=== PATIENT | female | born 1980 | race Caucasian/White ===

== ENCOUNTER 2024-08-07 17:53 | Inpatient (IN) | payer BC ==
[2024-08-07 20:13] LABS: BASOPHILS PERCENT AUTO 0.1 % (0.0-1.0); EOSINOPHILS PERCENT AUTO 0.6 % (1.0-3.0); HEMATOCRIT 40.6 % (37.0-47.0); HEMOGLOBIN 14.4 g/dL (12.0-16.0); LYMPHOCYTES PERCENT AUTO 23.4 % (20.5-50.1); MEAN CORPUSCULAR HEMOGLOBIN 30.1 pg (27.0-34.0); MEAN CORPUSCULAR HGB CONC 35.5 g/dL (33.0-35.0); MEAN CORPUSCULAR VOLUME 84.8 fL (80-100); MONOCYTES PERCENT AUTO 4.8 % (2-8); NEUTROPHILS PERCENT AUTO 71.1 % (42.2-75.2); PLATELET COUNT,PLT 279 10^3/uL (150-450); RED BLOOD CELL COUNT 4.79 10^6/uL (4.2-5.4); WHITE BLOOD CELL COUNT,WBC 15.3 10^3/uL (5.0-10.0)
[2024-08-07 20:37] LABS: ALBUMIN 3.2 g/dL (3.4-5.0); ANION GAP 13.4 mEq/L (7-13); BILIRUBIN TOTAL 0.9 mg/dL (0.2-1.0); BUN/CREATININE RATIO 11.8 (No establ ref range); CALCIUM 8.3 mg/dL (8.5-10.1); CREATININE 0.93 mg/dL (0.55-1.02); EST CRCL DRUG DOSING (CG) 68.01 mL/min; POTASSIUM,K 4.4 mmol/L (3.5-5.1); PROTEIN TOTAL,TP 7.2 g/dL (6.4-8.2)
[2024-08-07 20:44] LABS: A/G RATIO 0.8
[2024-08-07 21:46] LABS: APPEARANCE,URINE CLEAR (CLEAR); BILIRUBIN,URINE NEGATIVE (NEGATIVE); COLOR,URINE YELLOW (YELLOW); GLUCOSE,URINE NEGATIVE (NEGATIVE); KETONES,URINE TRACE (NEGATIVE); LEUKOCYTE ESTERASE,URINE NEGATIVE (NEGATIVE); NITRITE,URINE NEGATIVE (NEGATIVE); OCCULT BLOOD,URINE NEGATIVE (NEGATIVE); PH,URINE 6.5 (5.0-9.0); PROTEIN,URINE NEGATIVE (NEGATIVE); UROBILINOGEN,URINE 0.2 mg/dL (0.2-1.0)
[2024-08-08] MEDS: diphenhydrAMINE 50 MG/ML SDV IV ONE (00:08)
[2024-08-08] MEDS ORDERED: Metoprolol Tartrate 5 MG/5 ML SDV IVPUSH PRN (00:33)
[2024-08-08] MEDS ORDERED: Sennosides/Docusate Sodium 50-8.6 MG Tab PO PRN (00:33)
[2024-08-08] MEDS ORDERED: Metoclopramide 10 MG/2 ML SDV IV PRN (00:33)
[2024-08-08] MEDS ORDERED: Polyethylene Glycol 3350 Powder 17 GM Packet PO PRN (00:33)
[2024-08-08] MEDS ORDERED: HYDROmorphone 0.5 MG/0.5 ML Syringe IVPUSH PRN (00:33)
[2024-08-08] MEDS ORDERED: Acetaminophen/HYDROcodone 325-5 MG Tab PO PRN (00:33)
[2024-08-08] MEDS ORDERED: Naloxone 2 MG/2 ML Syringe IVPUSH PRN (00:33)
[2024-08-08] MEDS ORDERED: hydrALAZINE 20 MG/ML SDV IVPUSH PRN (00:33)
[2024-08-08] MEDS ORDERED: Magnesium Hydroxide 400 MG/5 ML Susp 30 ML Cup PO PRN (00:33)
[2024-08-08] MEDS ORDERED: Bisacodyl 10 MG Supp RECTAL PRN (00:33)
[2024-08-08] MEDS ORDERED: Albuterol/Ipratropium 3.0-0.5 MG/3 ML Neb Soln NEB PRN (00:33)
[2024-08-08] MEDS ORDERED: Ondansetron 4 MG/2 ML SDV IVPUSH PRN (00:33)
[2024-08-08] MEDS ORDERED: Acetaminophen 325 MG Tab PO PRN (00:33)
[2024-08-08] MEDS: Sodium Chloride 3% 100 ML IV ONE (01:03)
[2024-08-08] MEDS: Temazepam 15 MG Cap PO ONE (01:07)
[2024-08-08] MEDS: methylPREDNISolone Sodium Succinate 125 MG/2 ML SDV IVPUSH ONE (01:07)
[2024-08-08] MEDS ORDERED: GI Cocktail Oral Solution 30 ML PO PRN (01:07)
[2024-08-08] MEDS: Famotidine 20 MG/2 ML SDV IVPUSH ONE (01:07)
[2024-08-08] MEDS: Montelukast 10 MG Tab PO ONE (01:18)
[2024-08-08] MEDS: diphenhydrAMINE 50 MG/ML SDV IVPUSH ONE (01:18)
[2024-08-08] MEDS: MVI, Adult with Vitamin K 10 ML, Folic Acid 1 MG, Thiamine 100 MG in Lactated Ringers 1... IV ONE (01:18)
[2024-08-08] MEDS: diphenhydrAMINE 25 MG Tab PO ONE (01:19)
[2024-08-08] MEDS: Sodium Chloride 3% 500 ML IV ONE (01:19)
[2024-08-08 01:35] LABS: HEMOGLOBIN A1C 5.7 % (<5.7)
[2024-08-08 01:37] LABS: POTASSIUM,URINE RANDOM 21.4 mmol/L (No establ ref range)
[2024-08-08 01:46] LABS: T4 FREE 1.12 ng/dL (0.76-1.46); TSH ULTRASENSITIVE 2.09 uIU/mL (0.36-3.74)
[2024-08-08] MEDS: methylPREDNISolone Sodium Succinate 125 MG/2 ML SDV IVPUSH SCH (05:44)
[2024-08-08 06:36] LABS: HEMATOCRIT 42.6 % (37.0-47.0); HEMOGLOBIN 15.3 g/dL (12.0-16.0); LYMPHOCYTES PERCENT AUTO 16.1 % (20.5-50.1); MEAN CORPUSCULAR HEMOGLOBIN 30.4 pg (27.0-34.0); MEAN CORPUSCULAR HGB CONC 35.9 g/dL (33.0-35.0); MEAN CORPUSCULAR VOLUME 84.7 fL (80-100); MONOCYTES PERCENT AUTO 1.1 % (2-8); NEUTROPHILS PERCENT AUTO 82.8 % (42.2-75.2); PLATELET COUNT,PLT 280 10^3/uL (150-450); RED BLOOD CELL COUNT 5.03 10^6/uL (4.2-5.4); WHITE BLOOD CELL COUNT,WBC 7.6 10^3/uL (5.0-10.0)
[2024-08-08] MEDS ORDERED: Hydrocortisone 2.5% Crm 30 GM Tube TOP SCH (07:00)
[2024-08-08 07:36] LABS: ALANINE AMINOTRANSFERASE,ALT 25 U/L (14-59); ALBUMIN 3.1 g/dL (3.4-5.0); ALKALINE PHOSPHATASE 84 U/L (46-116); ANION GAP 13.9 mEq/L (7-13); ASPARTATE AMNIOTRANSFERASE,AST 23 U/L (15-37); BILIRUBIN TOTAL 0.8 mg/dL (0.2-1.0); BLOOD UREA NITROGEN,BUN 9 mg/dL (7-18); CARBON DIOXIDE,CO2 23 mmol/L (21-32); CHLORIDE,CL 98 mmol/L (98-107); CHOLESTEROL HDL 64 mg/dL (40-59); CHOLESTEROL LDL CALCULATED 78 mg/dL (0-100); CHOLESTEROL TOTAL 170 mg/dL (0-199); EST CRCL DRUG DOSING (CG) 70.28 mL/min; GLUCOSE RANDOM 159 mg/dL (70-99); MAGNESIUM 2.1 mg/dL (1.8-2.4); POTASSIUM,K 4.9 mmol/L (3.5-5.1); PROTEIN TOTAL,TP 7.3 g/dL (6.4-8.2); SODIUM,NA 130 mmol/L (136-145); TRIGLYCERIDES 141 mg/dL (0-149)
[2024-08-08 07:39] LABS: A/G RATIO 0.74; ESTIMATED GFR 80 mL/min (>=60)
[2024-08-08] MEDS: Famotidine 20 MG Tab PO SCH (09:59)
[2024-08-08] MEDS: Hydrocortisone 2.5% Crm 30 GM Tube TOP SCH (09:59)
[2024-08-08] MEDS: Enoxaparin 40 MG/0.4 ML Syringe SUBCUT SCH (09:59)
[2024-08-08] MEDS: Loratadine 10 MG Tab PO SCH (10:00)
[2024-08-08] MEDS: Propranolol 60 MG Cap.ER PO SCH (10:00)
[2024-08-08 12:41] LABS: ANION GAP 14.2 mEq/L (7-13); CALCIUM 8.8 mg/dL (8.5-10.1); CREATININE 0.89 mg/dL (0.55-1.02); EST CRCL DRUG DOSING (CG) 71.07 mL/min; POTASSIUM,K 4.2 mmol/L (3.5-5.1)
[2024-08-08] MEDS ORDERED: Montelukast 10 MG Tab PO SCH (21:00)
[2024-08-08] MEDS ORDERED: Temazepam 15 MG Cap PO PRN (21:00)
== END 2024-08-08 19:01 | disposition home or self-care (01) | DRG 426 ==
LOC: DL.ED 17:53 → DL.MS 08-08 00:21
PROVIDERS: ADMIT Internal Medicine; ATTEND Internal Medicine
DX: E87.1 Hypo-osmolality and hyponatremia (principal); K21.9 Gastro-esophageal reflux disease without esophagitis; I10 Essential (primary) hypertension; F32.A Depression, unspecified; K50.90 Crohn's disease, unspecified, without complications; M54.16 Radiculopathy, lumbar region; R12 Heartburn; D72.829 Elevated white blood cell count, unspecified; E88.09 Other disorders of plasma-protein metabolism, not elsewhere classified; E66.811 Obesity, class 1; G54.0 Brachial plexus disorders; M25.562 Pain in left knee; G89.29 Other chronic pain; L30.9 Dermatitis, unspecified; R73.9 Hyperglycemia, unspecified; Z79.899 Other long term (current) drug therapy; Z98.890 Other specified postprocedural states; Z68.31 Body mass index [BMI] 31.0-31.9, adult; Z79.52 Long term (current) use of systemic steroids
CPT/HCPCS: 36415; 70450; 71275; 80048; 80053; 80061; 81003; 82550; 83036; 83735; 83935; 84133; 84300; 84439; 84443; 84484; 84703; 85025; 85379; 93005; 93880; 99285; A9270-GY; J1200; J1650; J2919; J3411; J3490; J7120; J7131